=== PATIENT | female | born 1990 | race African-American/Black ===

== ENCOUNTER 2016-09-17 12:01 | Emergency (ER) | payer MEDICAID, OTHER ==
[~2016-09-17] VITALS: Ht 152.4 cm; Wt 60.0 kg
[~2016-09-17 12:01] MED LIST: DIFL150T PO; METR-1 PO
[2016-09-17 12:02] VITALS: BP 138/79; PULSE 102; RESP 15; TEMP 97.4; O2SAT 98
[2016-09-17 15:48] LABS: BLOOD, URINE NEG (NEG); COMMENT (UR) CULT NOT INDICATED; CULTURE IF INDICATED CULT NOT INDICATED; GLUCOSE,URINE NEG (NEG); KETONE, URINE TRACE mg/dL (NEG); MUCUS URINE FEW /lpf (OCC); NITRITE,URINE NEG (NEG); SQUAMOUS EPITHELIAL CELL URINE 1 /hpf (0-5); URINE COLOR YELLOW (YELLW/STRAW)
--- NOTE | 2016-09-17 16:52 | PD ---
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 Patient states she has had on-and-off yeast infections try to treat herself at home and they're not getting better. Patient denies any possibility for STDs. Patient states that she read online that HIV needs to be considered in patient with recurrent infection. She is also requesting an HIV test at this time. Denies any IV drug use is not had any new partners recently. Patient denies any abdominal pain nausea vomiting. Denies any dysuria. She states she has been diagnosed with chlamydia in the past. [facility] Past Medical History Medical History: Denies Significant Hx Diminished Hearing: Yes (L EAR X 2 DAYS) ?: Not LMP: 09/14/16 : 3 Para: 3 Past Surgical History Abdominal Surgery: Yes (UMBILICAL HERNIA) Section: Yes (X 3) Oral Surgery: Yes (2TEETH REMOVED) Social History Alcohol Use: Yes (BEER/6 PACK, 2 X WEEK) Tobacco Use: Yes (1/2 ppd) Substance Use: No Allergies-Medications (Allergen,Severity, Reaction): Coded Allergies: No Known Allergies (Unverified , 09/17/16) Reported Meds & Prescriptions Reported Meds & Active Scripts Active No Active Prescriptions or Reported Medications Review of Systems Except as stated in HPI: all other systems reviewed are Neg Physical Exam Narrative GENERAL: Well-nourished, well-developed patient. SKIN: Warm and dry. HEAD: Normocephalic. EYES: No scleral icterus. No injection or drainage. NECK: Supple, trachea midline. No JVD or lymphadenopathy. CARDIOVASCULAR: Regular rate and rhythm without murmurs, gallops, or rubs. RESPIRATORY: Breath sounds equal bilaterally. No accessory muscle use. GASTROINTESTINAL: Abdomen soft, non-tender, nondistended. GENITOURINARY: Exam performed and female nurse graduate teaching associate present at all times. There is no external lesion or rash. Grossly normal female external genitalia. Speculum exam shows brown discharge at the cervical os. There is a white object which appears to be an IUD protruding from the cervical os. There is no cervical motion tenderness no bimanual tenderness. MUSCULOSKELETAL: No cyanosis, or edema. BACK: Nontender without obvious deformity. No CVA tenderness. Data Data Last Documented VS Vital Signs Date Time Temp Pulse Resp B/P Pulse Ox O2 Delivery O2 Flow Rate FiO2 09/17/16 12:02 97.4 102 15 138/79 98 Orders Urinalysis - C+S If Indicated (09/17/16 14:46) Ed Urine Pregnancytest Poc (09/17/16 14:46) Wet Prep Profile (09/17/16 15:17) Gc And Chlamydia Pcr (09/17/16 15:17) Ceftriaxone Inj (Rocephin Inj) (09/17/16 17:00) Azithromycin (Zithromax) (09/17/16 17:00) Metronidazole (Flagyl) (09/17/16 17:00) Lidocai-Epi 1%-1:100,000 Inj (Xylocaine- (09/17/16 17:10) Lidocaine 1% Inj (50 Ml) (Xylocaine 1% I (09/17/16 17:30) Labs Laboratory Tests Test 09/17/16 09/17/16 15:20 16:50 Urine Color YELLOW Urine Turbidity CLEAR Urine pH 6.0 Urine Specific [place] 1.019 Urine Protein NEG mg/dL Urine Glucose (UA) NEG mg/dL Urine Ketones TRACE mg/dL Urine Occult Blood NEG Urine Nitrite NEG Urine Bilirubin NEG Urine Urobilinogen LESS THAN 2.0 MG/DL Urine Leukocyte Esterase NEG Urine WBC LESS THAN 1 /hpf Urine Squamous Epithelial 1 /hpf Cells Urine Mucus FEW /lpf Microscopic Urinalysis Comment CULT NOT INDICATED Clue Cells (Wet Prep) NONE SEEN Vaginal Trichomonas (Wet Prep) NONE SEEN Vaginal Yeast (Wet Prep) NONE SEEN Chlamydia trachomatis DNA NOT DETECTED (PCR) Neisseria gonorrhoeae DNA NOT DETECTED (PCR) [facility] Medical Decision Making Medical Screen Exam Complete: Yes Emergency Medical Condition: Yes Differential Diagnosis IUD malfunction, I IUD malpositioned, gonorrhea, chlamydia, endometritis unlikely, PID unlikely. Narrative Course Patient was roomed in the emergency department, she appears well and in no apparent distress. Has discharge consistent with STD. We'll cover with Rocephin and azithromycin and Flagyl. Discussed that it appears her IUD is slightly protruding from her cervical os and probably needs. Removed. Is no indication for emergent removal in the emergency department. Discussed need for follow-up with the health department and an REVERBERATORY FURNACE OPERATOR for consideration of its removal and that her symptoms may not improve until this is done. Discussed any abdominal pain nausea vomiting or fever should prompt emergent return to the ER for further workup. At this time she is stable and can be followed up and worked up as an outpatient. Diagnosis Primary Impression: Cervicitis Additional Impression: IUD complication Qualified Code: T83.9XXA - Complication of intrauterine device (IUD), unspecified complication, initial encounter Referrals: Jerome Maxwell MD Additional Instructions: Recommend follow-up with the health department for testing for HIV and hepatitis. He need to follow up with the health department or a glass washer and carrier for consideration of removal of your IUD. If you have high fevers that do not get any better he need to return to the emergency department. Scripts No Active Prescriptions or Reported Meds Disposition: 01 DISCHARGE HOME Condition: Stable Aly Jackson MD Sep 17, 2016 16:52
[2016-09-17] MEDS ORDERED: metroNIDAZOLE 500 MG TAB PO ONE (17:00)
[2016-09-17] MEDS ORDERED: cefTRIAXone 250 MG VIAL IM ONE (17:00)
[2016-09-17] MEDS ORDERED: AZITHROMYCIN 250 MG TAB PO ONE (17:00)
[2016-09-17] MEDS ORDERED: LIDOCAINE 1%/EPINEPHrine 1:100,000 SOLN 20 ML VIAL ONE (17:10)
[2016-09-17] MEDS ORDERED: LIDOCAINE HCL 1% 50 ML VIAL INFIL ONE (17:30)
[2016-09-17 19:21] LABS: CHLAMYDIA PCR NOT DETECTED (NOT DETECT); NEISSERIA PCR NOT DETECTED (NOT DETECT)
== END 2016-09-17 17:35 | disposition home or self-care (01) ==
LOC: NEPE 12:01
DX: N72 Inflammatory disease of cervix uteri (principal); T83.39XA Other mechanical complication of intrauterine contraceptive device, initial encounter
CPT/HCPCS: 81001; 84703; 87210; 87491; 87591; 96372; 99283; J0696

== ENCOUNTER 2017-05-16 14:54 | Emergency (ER) | payer OTHER, MEDICAID ==
[~2017-05-16] VITALS: Ht 162.6 cm; Wt 60.0 kg
[2017-05-16 15:11] VITALS: BP 129/85; PULSE 100; RESP 14; TEMP 98.8; O2SAT 99
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
[2017-05-16] MEDS ORDERED: ACETAMINOPHEN/HYDROcodone 325 MG/5 MG TAB PO ONE (16:30)
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
[2017-05-16] MEDS ORDERED: IBUP-232 PO (17:01)
[2017-05-16] MEDS ORDERED: HYDR-3533 PO (17:01)
[2017-05-26] MEDS ORDERED: IBUP-232 PO (18:30)
[2017-05-26] MEDS ORDERED: MAPA500T13 PO (18:30)
== END 2017-05-16 17:28 | disposition home or self-care (01) ==
LOC: NEPK 14:54
DX: S80.02XA Contusion of left knee, initial encounter (principal); S93.402A Sprain of unspecified ligament of left ankle, initial encounter; V13.0XXA Pedal cycle driver injured in collision with car, pick-up truck or van in nontraffic accident, initial encounter; Z72.0 Tobacco use
CPT/HCPCS: 73564; 73610; 99283; E0113; L1906

== ENCOUNTER 2017-05-26 17:31 | Emergency (ER) | payer OTHER, MEDICAID ==
[~2017-05-26] VITALS: Ht 152.4 cm; Wt 60.0 kg
[~2017-05-26 17:31] MED LIST changes: -DIFL150T PO; +HYDR-3533 PO; +IBUP-232 PO; -METR-1 PO
[2017-05-26 17:33] VITALS: BP 132/78; PULSE 89; RESP 16; TEMP 97.9; O2SAT 100
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
[2017-05-26] MEDS ORDERED: IBUP-232 PO ×2 (18:30)
[2017-05-26] MEDS ORDERED: MAPA500T13 PO ×2 (18:30)
== END 2017-05-26 18:48 | disposition home or self-care (01) ==
LOC: NEPK 17:31
DX: M54.5 Low back pain (principal); S63.502A Unspecified sprain of left wrist, initial encounter; S80.02XA Contusion of left knee, initial encounter; V13.4XXA Pedal cycle driver injured in collision with car, pick-up truck or van in traffic accident, initial encounter; Y93.55 Activity, bike riding
CPT/HCPCS: 72100; 73110; 99284; L3908

== ENCOUNTER 2017-07-19 15:47 | Emergency (ER) | payer MEDICAID ==
[~2017-07-19 15:47] MED LIST changes: +MAPA500T13 PO
[2017-07-19 15:50] VITALS: BP 132/81; PULSE 98; RESP 16; TEMP 98.1; O2SAT 96
[2017-07-19] MEDS ORDERED: CLIN300C5 PO (16:24)
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
== END 2017-07-19 16:35 | disposition home or self-care (01) ==
LOC: NEPK 15:47
DX: S01.511A Laceration without foreign body of lip, initial encounter (principal); L08.9 Local infection of the skin and subcutaneous tissue, unspecified; V19.9XXA Pedal cyclist (driver) (passenger) injured in unspecified traffic accident, initial encounter; Y93.55 Activity, bike riding; Z72.0 Tobacco use
CPT/HCPCS: 99283

== ENCOUNTER 2017-08-07 14:29 | Emergency (ER) | payer MEDICAID ==
[~2017-08-07] VITALS: Ht 152.4 cm; Wt 56.5 kg
[~2017-08-07 14:29] MED LIST changes: +CLIN300C5 PO
[2017-08-07 14:31] VITALS: BP 130/83; PULSE 82; RESP 16; TEMP 98.5; O2SAT 99
--- NOTE | 2017-08-07 15:07 | PD ---
HPI Chief Complaint: Frameman Problem/Complaint Time Seen by Provider: 14:55 Travel History International Travel<30 days: No Contact w/Intl Traveler<30days: No Traveled to known affect area: No History of Present Illness HPI 27-year-old female presents emergency Department with complaint of vaginal bleeding 3 weeks. States her bleeding is light and she goes through one super tampon per day. The bleeding has stopped twice for half a day in the last 3 weeks and then restarted. She reports irregular menses. Denies abdominal pain , fever, dysuria. Denies vaginal discharge, odor. Reports nausea without vomiting. Reports feeling lightheaded. Denies dizziness. Has not taken any medications or tried any treatments to alleviate her symptoms. Symptoms are mild in severity. Has IUD in place for control. No known relieving or aggravating factors. No primary care provider. No crate tier. No known allergies. Denies any past medical history. Has no other medical complaints. No other modifying factors or associated signs and symptoms. PFSH Past Medical History Diminished Hearing: Yes (L EAR X 2 DAYS) Tetanus Vaccination: < 5 Years Influenza Vaccination: Yes ?: Unknown : 3 Para: 3 Past Surgical History Abdominal Surgery: Yes (UMBILICAL HERNIA) Section: Yes (X 3) Oral Surgery: Yes (2TEETH REMOVED) Social History Alcohol Use: Yes (BEER/6 PACK, 2 X WEEK) Tobacco Use: Yes (1/2 ppd) Substance Use: No Allergies-Medications (Allergen,Severity, Reaction): Coded Allergies: No Known Allergies (Unverified Adverse Reaction, Unknown, 08/07/17) Reported Meds & Prescriptions Reported Meds & Active Scripts Active Clindamycin (Clindamycin HCl) 300 Mg Cap 300 Mg PO Q6H 10 Days Mapap Extra Strength (Acetaminophen) 500 Mg Tab 500 Mg PO Q8HR PRN Ibuprofen 600 Mg Tab 600 Mg PO Q8H PRN Lortab (Hydrocodone-Acetaminophen) 5-325 Mg Tab 1 Tab PO Q6H PRN Ibuprofen 600 Mg Tab 600 Mg PO Q8HR PRN Review of Systems Except as stated in HPI: all other systems reviewed are Neg Physical Exam Narrative GENERAL: Well-nourished, well-developed black female patient, in no acute distress SKIN: Warm and dry. HEAD: Atraumatic. Normocephalic. EYES: Pupils equal and round. No scleral icterus. No injection or drainage. ENT: Mucosa pink and moist. Airway patent. NECK: Trachea midline. CARDIOVASCULAR: Regular rate and rhythm. No murmur appreciated. RESPIRATORY: No accessory muscle use. Clear to auscultation. Breath sounds equal bilaterally. GASTROINTESTINAL: Abdomen soft, non-tender, nondistended. Hepatic and splenic margins not palpable. Bowel sounds are active 4 quadrants. MUSCULOSKELETAL: No obvious deformities. No clubbing. No cyanosis. No edema. BACK: No CVA tenderness. NEUROLOGICAL: Awake and alert. Oriented 3. No obvious cranial nerve deficits. Motor grossly within normal limits. Normal speech. PSYCHIATRIC: Appropriate mood and affect; insight and judgment normal. Data Data Last Documented VS Vital Signs Date Time Temp Pulse Resp B/P (MAP) Pulse Ox O2 Delivery O2 Flow Rate FiO2 08/07/17 14:31 98.5 82 16 130/83 (99) 99 Orders Orders Ed Urine Pregnancytest Poc (08/07/17 15:03) Complete Blood Count With Diff (08/07/17 15:03) Labs Laboratory Tests Test 08/07/17 15:18 White Blood Count 7.4 TH/MM3 Red Blood Count 4.51 MIL/MM3 Hemoglobin 13.4 GM/DL Hematocrit 39.5 % Mean Corpuscular Volume 87.6 FL Mean Corpuscular Hemoglobin 29.6 PG Mean Corpuscular Hemoglobin Concent 33.8 % Red Cell Distribution Width 13.9 % Platelet Count 291 TH/MM3 Mean Platelet Volume 8.1 FL Neutrophils (%) (Auto) 56.1 % Lymphocytes (%) (Auto) 33.4 % Monocytes (%) (Auto) 5.5 % Eosinophils (%) (Auto) 4.0 % Basophils (%) (Auto) 1.0 % Neutrophils # (Auto) 4.2 TH/MM3 Lymphocytes # (Auto) 2.5 TH/MM3 Monocytes # (Auto) 0.4 TH/MM3 Eosinophils # (Auto) 0.3 TH/MM3 Basophils # (Auto) 0.1 TH/MM3 CBC Comment DIFF FINAL Differential Comment MDM Medical Decision Making Medical Screen Exam Complete: Yes Emergency Medical Condition: Yes Medical Record Reviewed: Yes Differential Diagnosis Menorrhagia, prolonged menstrual bleeding, dysmenorrhea Narrative Course 27-year-old female with light vaginal bleeding 3 weeks. She is going to one super tampon per day. She does report lightheadedness. Physical exam is unremarkable. She denies abnormal vaginal discharge or dysuria. Denies abdominal pain. I discussed the patient with Dr. Flores, my attending physician, and she agrees with my plan of care. CBC and UPT ordered. 1531: UPT negative. 1537: CBC unremarkable. Instructed patient to follow up with gynecology, [facility], or [facility] now for follow-up. Resources provided. Instructed patient to follow up with primary care provider. Patient verbalizes understanding and agreement with treatment plan. Patient is medically cleared and stable for discharge. Discussed reasons to return to the emergency department. Patient agrees with treatment plan. The patients vital signs are stable and the patient is stable for outpatient follow- up and treatment. Patient discharged home, stable and in no acute distress. Diagnosis Primary Impression: Menorrhagia Qualified Codes: N92.1 - Excessive and frequent menstruation with irregular cycle Referrals: [facility] [employer] Primary Care Physician [facility] Dept. Patient Instructions: General Instructions, Menorrhagia (ED) Additional Instructions: Follow-up with gynecology/[facility] now Follow-up with primary care provider/[facility] Return to the emergency department immediately with worsening of symptoms Med/Other Pt SpecificInfo: No Change to Meds, No Meds Exist/No RX given Disposition: 01 DISCHARGE HOME Condition: Stable Gisela Matson Aug 07, 2017 15:07
[2017-08-07 15:33] LABS: AUTOMATED NEUTROPHIL # 4.2 TH/MM3 (1.8-7.7); BASOPHIL # 0.1 TH/MM3 (0-0.2); EOSINOPHIL # 0.3 TH/MM3 (0-0.4); HEMATOCRIT 39.5 % (35.0-46.0); HEMOGLOBIN 13.4 GM/DL (11.6-15.3); LYMPH % 33.4 % (9.0-44.0); LYMPHOCYTE # 2.5 TH/MM3 (1.0-4.8); MEAN CELL VOLUME 87.6 FL (80.0-100.0); MEAN CORPUSCULAR HEMOGLOBIN 29.6 PG (27.0-34.0); MEAN CORPUSCULAR HGB CONC 33.8 % (32.0-36.0); MEAN PLATELET VOLUME 8.1 FL (7.0-11.0); MONO % 5.5 % (0.0-8.0); MONOCYTE # 0.4 TH/MM3 (0-0.9); NEUT % 56.1 % (16.0-70.0); PLATELET COUNT 291 TH/MM3 (150-450); RED BLOOD COUNT 4.51 MIL/MM3 (4.00-5.30); RED CELL DISTRIBUTION WIDTH 13.9 % (11.6-17.2); WHITE BLOOD COUNT 7.4 TH/MM3 (4.0-11.0)
== END 2017-08-07 15:55 | disposition home or self-care (01) ==
LOC: NEPD 14:29
DX: N92.1 Excessive and frequent menstruation with irregular cycle (principal); R42 Dizziness and giddiness; R11.0 Nausea; F17.200 Nicotine dependence, unspecified, uncomplicated; Z79.899 Other long term (current) drug therapy
CPT/HCPCS: 84703; 85025; 99283

== ENCOUNTER 2017-09-28 12:01 | Emergency (ER) | payer MEDICAID ==
[2017-09-28 12:19] VITALS: BP 130/74; PULSE 95; RESP 16; TEMP 98.5; O2SAT 98
--- NOTE | 2017-09-28 12:50 | PD ---
HPI Chief Complaint: Skin Problem Time Seen by Provider: 12:37 Travel History International Travel<30 days: No Contact w/Intl Traveler<30days: No Traveled to known affect area: No History of Present Illness HPI 27-year-old female presents emergency department with 2 issues. One is of stomach discomfort which she feels is probably a stomach ulcer, with mild nausea and gnawing pain. She denies vomiting or changes in her stool. She states the pain is progressively worsened over the past several weeks. It is somewhat better after she eats. Patient also noted a small tender lump on the left lateral labial region several days ago, and is here to get that checked. It is small, and not draining on its own. Patient has no history of MRSA in the past. Patient has no local primary care physician. Patient also questions whether she could be . She has no known drug allergies. PFSH Past Medical History Diminished Hearing: No Tetanus Vaccination: Unknown ?: Unknown : 3 Para: 3 Past Surgical History Abdominal Surgery: Yes (UMBILICAL HERNIA) Section: Yes (X 3) Oral Surgery: Yes (2TEETH REMOVED) Social History Alcohol Use: Yes (BEER/6 PACK, 2 X WEEK) Tobacco Use: Yes (1/2 ppd) Substance Use: No Allergies-Medications (Allergen,Severity, Reaction): Coded Allergies: No Known Allergies (Unverified Adverse Reaction, Unknown, 09/28/17) Reported Meds & Prescriptions Reported Meds & Active Scripts Active Pepcid (Famotidine) 40 Mg Tab 40 Mg PO HS Keflex (Cephalexin) 500 Mg Cap 500 Mg PO Q8H 7 Days Bactrim DS (Sulfamethoxazole-Trimethoprim) 800-160 Mg Tab 1 Tab PO BID Clindamycin (Clindamycin HCl) 300 Mg Cap 300 Mg PO Q6H 10 Days Mapap Extra Strength (Acetaminophen) 500 Mg Tab 500 Mg PO Q8HR PRN Ibuprofen 600 Mg Tab 600 Mg PO Q8H PRN Lortab (Hydrocodone-Acetaminophen) 5-325 Mg Tab 1 Tab PO Q6H PRN Ibuprofen 600 Mg Tab 600 Mg PO Q8HR PRN Review of Systems Except as stated in HPI: all other systems reviewed are Neg General / Constitutional: No: Fever Eyes: No: Visual changes HENT: No: Headaches Cardiovascular: No: Chest Pain or Discomfort Respiratory: No: Shortness of Breath Gastrointestinal: Positive: Nausea, Abdominal Pain (See history of present illness) Genitourinary: No: Dysuria Musculoskeletal: No: Pain Skin: Positive Lesions (See history of present illness.), No Rash Neurologic: No: Weakness Psychiatric: No: Depression Endocrine: No: Polydipsia Hematologic/Lymphatic: No: Easy Bruising Physical Exam Narrative GENERAL: Patient is in no acute distress. SKIN: Warm and dry. Normal color. Normal turgor. Patient has a small apparent ingrown hair to the left lateral labial region without significant signs of abscess. Exam performed with nursing staff present. HEAD: Atraumatic. Normocephalic. EYES: Pupils equal and round. No scleral icterus. No injection or drainage. ENT: No nasal bleeding or discharge. Mucous membranes pink and moist. Pharynx is clear. Airway patent NECK: Trachea midline. Supple and nontender. CARDIOVASCULAR: Regular rate and rhythm. RESPIRATORY: No accessory muscle use. Clear to auscultation. Breath sounds equal bilaterally. GASTROINTESTINAL: Abdomen soft, mild generalized epigastric tenderness, nondistended. Negative Gillis sign. Negative CVA tenderness. Hepatic and splenic margins not palpable. MUSCULOSKELETAL: Extremities without clubbing, cyanosis, or edema. No obvious deformities. NEUROLOGICAL: Awake and alert. No obvious cranial nerve deficits. Motor grossly within normal limits. Five out of 5 muscle strength in the arms and legs. Normal speech. PSYCHIATRIC: Appropriate mood and affect; insight and judgment normal. Data Data Last Documented VS Vital Signs Date Time Temp Pulse Resp B/P (MAP) Pulse Ox O2 Delivery O2 Flow Rate FiO2 09/28/17 12:19 98.5 95 16 130/74 (92) 98 Orders Orders Ed Urine Pregnancytest Poc (09/28/17 12:42) [facility] Medical Decision Making Medical Screen Exam Complete: Yes Emergency Medical Condition: Yes Differential Diagnosis Ingrown hair. Cellulitis. Early abscess. Possible gastric ulcer. Possible . Narrative Course Urine is neg. Patient will be treated empirically with Keflex 5 mg 3 times daily 7 days. Patient also given Bactrim DS twice daily 7 days. Patient started on Pepcid 40 mg daily 30 days. Patient given information about [facility] for follow-up. Patient can return to the emergency department as needed. Diagnosis Primary Impression: Ingrown hair Additional Impression: Cellulitis Qualified Codes: L03.315 - Cellulitis of perineum Patient Instructions: Cellulitis (ED), Diet for Stomach Ulcers and Gastritis ( ED), Gastritis (ED), General Instructions Additional Instructions: Urine is neg. Patient will be treated empirically with Keflex 5 mg 3 times daily 7 days. Patient also given Bactrim DS twice daily 7 days. Patient started on Pepcid 40 mg daily 30 days. Patient given information about [facility] for follow-up. Patient can return to the emergency department as needed. Med/Other Pt SpecificInfo: Prescription(s) given Scripts Famotidine (Pepcid) 40 Mg Tab 40 MG PO HS, #30 TAB 0 Refills Prov: Cristian Hickman MD 09/28/17 Cephalexin (Keflex) 500 Mg Cap 500 MG PO Q8H for Infection for 7 Days, #21 CAP 0 Refills Prov: Cristian Hickman MD 09/28/17 Sulfamethoxazole-Trimethoprim (Bactrim DS) 800-160 Mg Tab 1 TAB PO BID for Infection, #14 TAB 0 Refills Prov: Cristian Hickman MD 09/28/17 Disposition: 01 DISCHARGE HOME Condition: Stable Adalberto Myers Sep 28, 2017 12:50
[2017-09-28] MEDS ORDERED: FAMO1TAB73 PO (12:51)
[2017-09-28] MEDS ORDERED: BACT800T5 PO (12:51)
[2017-09-28] MEDS ORDERED: CEPH-460 PO (12:51)
== END 2017-09-28 13:34 | disposition home or self-care (01) ==
LOC: NEPD 12:01
DX: L73.1 Pseudofolliculitis barbae (principal); L03.315 Cellulitis of perineum; F17.210 Nicotine dependence, cigarettes, uncomplicated
CPT/HCPCS: 84703; 99283

== ENCOUNTER 2017-11-22 12:11 | Emergency (ER) | payer SELFPAY ==
[~2017-11-22 12:11] MED LIST changes: +BACT800T5 PO; +CEPH-460 PO; +FAMO1TAB73 PO
[2017-11-22 12:19] VITALS: BP 150/74; PULSE 75; RESP 16; TEMP 98.4; O2SAT 100
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
== END 2017-11-22 14:26 | disposition home or self-care (01) ==
LOC: NEPK 12:11
DX: S92.502A Displaced unspecified fracture of left lesser toe(s), initial encounter for closed fracture (principal); Y09 Assault by unspecified means
CPT/HCPCS: 73660; 99283